=== PATIENT | female | born 1950 | race Caucasian/White ===

== ENCOUNTER 2018-01-10 11:28 | Emergency (ER) | payer MEDICARE, OTHER ==
[2018-01-10 11:58] VITALS: BP 142/82
--- NOTE | 2018-01-10 12:37 | UC ---
Hand/Wrist HPI - HPI Summary HPI Summary: Patient presents to the ED with chief complaint of pain to the thenar eminence of the left hand which does not radiate into the ipsilateral thumb. No ecchymosis or temperature changes to the thumb or hand. She endorses following to the hand approximately 2 weeks ago and noted to ecchymosis at the time. She is concerned over a hairline fracture or other pathology as she continues to have pain with movement. She states she is very active and is concerned over reinjuring the hand. Has never injured the hand before. Denies any numbness or tingling. - History Of Current Complaint Chief Complaint: UCUpperExtremity Stated Complaint: HAND INJURY Time Seen by Provider: 01/10/18 12:01 Hx Obtained From: Patient ?: No Onset/Duration: Sudden Onset Severity Initially: Mild Severity Currently: Mild Pain Intensity: 1 Pain Scale Used: 0-10 Numeric Character Of Pain: Aching Alleviating Factor(s): Rest, Ice Associated Signs And Symptoms: Positive: Negative Related History: Dominant Hand Right - Risk Factors Compartment Syndrome Risk Factors: Pain - Allergies/Home Medications Allergies/Adverse Reactions: Allergies Allergy/AdvReac Type Severity Reaction Status Date / Time amoxicillin Allergy Hives Verified 01/10/18 13:36 clavulanic acid Allergy Hives Verified 01/10/18 13:36 sulfacetamide Allergy Hives Verified 01/10/18 13:36 PMH/Surg Hx/FS Hx/Imm Hx Previously Healthy: Yes - Surgical History Surgical History: None Surgery Procedure, Year, and Place: dental - Family History Known Family History: Positive: Unknown - Social History Occupation: Unemployed Lives: With Family Alcohol Use: Occasionally Substance Use Type: None Smoking Status (MU): Never Smoked Tobacco - Immunization History Most Recent Tetanus Shot: UTD Review of Systems Constitutional: Negative Skin: Negative Respiratory: Negative Cardiovascular: Negative Neurovascular: Negative Musculoskeletal: Arthralgia - Left thenar eminence pain Neurological: Negative Is Patient Immunocompromised?: No All Other Systems Reviewed And Are Negative: Yes Physical Exam Triage Information Reviewed: Yes Appearance: Well-Appearing, Well-Nourished Vital Signs: Initial Vital Signs Temp 98.6 F 01/10/18 11:49 Pulse 60 01/10/18 11:49 Resp 16 01/10/18 11:49 BP 142/82 01/10/18 11:49 Pulse Ox 98 01/10/18 11:49 Vital Signs Reviewed: Yes Eye Exam: Normal Eyes: Positive: Conjunctiva Clear Neck exam: Normal Neck: Positive: Supple Respiratory Exam: Normal Respiratory: Positive: Chest non-tender, Lungs clear Cardiovascular Exam: Normal Cardiovascular: Positive: RRR Musculoskeletal Exam: Normal Musculoskeletal: Positive: Strength Intact Neurological Exam: Normal Neurological: Positive: Alert Psychological: Positive: Normal Response To Family Skin Exam: Normal Hand/Wrist Course/Dx - Course Course Of Treatment: During the course of treatment, the patient is evaluated for left thenar eminence pain 2 weeks s/p fall to the hand. She is able to flex and extend at the wrist without discomfort. X-ray obtained. Unable to see the final report. Called Dr. 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 I have given her a referral to Dr. Weeks if any symptoms continue to worsen, but likely this is a contusion over the thenar eminence and will take several weeks to heal. She is okay with this plan and discharge. I encouraged ibuprofen 600 mg 3 times daily. - Differential Dx/Diagnosis Provider Diagnoses: Contusion to the L thenar eminence Discharge - Discharge Plan Condition: Stable Disposition: HOME Patient Education Materials: Contusion in Adults (ED) Referrals: Amrita Solorzano MD [Primary Care Provider] - Haley Weeks MD [Medical Doctor] - Additional Instructions: Please follow-up with Dr. Weeks if symptoms fail to improve Ibuprofen 600 mg 3 times daily
--- NOTE | 2018-01-10 14:36 | RAD ---
INDICATION: Pain at the left thumb metacarpal phalangeal joint 2 weeks after a fall COMPARISON: None. TECHNIQUE: 4 views of the left hand were obtained. FINDINGS: The adequately corticated bones are in normal alignment. No significant focal osseous abnormality or fracture is seen. Degenerative changes include sclerotic bony remodeling at the left thumb metacarpal trapezium joint with a small degree of radial subluxation of the metacarpal. IMPRESSION: Degenerative changes as described above without radiographically apparent acute fracture or dislocation. If the patient's symptoms persist, follow-up imaging is recommended.
== END 2018-01-10 13:32 | disposition home or self-care (01) ==
LOC: UCEAST 11:28
DX: S60.222A Contusion of left hand, initial encounter (principal); W19.XXXA Unspecified fall, initial encounter; Y92.9 Unspecified place or not applicable; M18.9 Osteoarthritis of first carpometacarpal joint, unspecified; Z88.3 Allergy status to other anti-infective agents; Z88.2 Allergy status to sulfonamides; Z88.8 Allergy status to other drugs, medicaments and biological substances
CPT/HCPCS: 99211; G0463